=== PATIENT | male | born 1970 | race Caucasian/White ===

== ENCOUNTER 2016-06-24 15:43 | Emergency (ER) | payer OTHER ==
[2016-06-24] MEDS ORDERED: HYDROMORPHONE HCL INJ/PF 2 MG/ML AMPULE IV ONE ×2 (17:29→19:02)
[2016-06-24] MEDS ORDERED: ONDANSETRON 4 MG TAB.RAPDIS PO ONE (17:29)
--- NOTE | 2016-06-24 17:29 | ER Document Report ---
HPI - HPI Patient complains to provider of: low back pain Onset: This morning Pain Level: 5 Context: 46-year-old male with a history of chronic back pain for 20 years with episodic episodes of severe pain, reached forward to get to a paper while on the toilet this morning at 9:30 and developed sharp back pain which caused her to lock up. It took him almost 2 hours due to the severe pain to get to the recliner and then to call 911 to bring him in any type of movement causes pain. No radiculopathy. No saddle anesthesia. [facility] and takes muscle relaxers and just started steroid Dosepak yesterday. He had an x-ray by chiropractor last week he has had 3 MRIs in the past and none of that was surgical. Associated Symptoms: None Exacerbated by: Movement Relieved by: Denies - ROS ROS below otherwise negative: Yes Systems Reviewed and Negative: Yes All other systems reviewed and negative - DERM Skin Color: Normal, [place] Past Medical History - General Information source: Patient - Social History Smoking Status: Never Smoker Chew tobacco use (# tins/day): No Frequency of alcohol use: None Drug Abuse: None Lives with: Spouse/Significant other Family History: Reviewed & Not Pertinent Patient has suicidal ideation: No Patient has homicidal ideation: No - Medical History Medical History: Negative Renal/ Medical History: Denies: Hx Peritoneal Dialysis Surgical Hx: Negative - Immunizations Hx Diphtheria, Pertussis, Tetanus Vaccination: Yes Vertical Provider Document - CONSTITUTIONAL Agree With Documented VS: Yes Exam Limitations: No Limitations - INFECTION CONTROL TRAVEL OUTSIDE OF THE [place] IN LAST 30 DAYS: No - HEENT HEENT: Normocephalic - NECK Neck: Supple - RESPIRATORY Respiratory: Breath Sounds Normal, No Respiratory Distress - CARDIOVASCULAR Cardiovascular: Regular Rate, Regular Rhythm - GI/ABDOMEN Gastrointestinal: Abdomen Soft, Abdomen Non-Tender - BACK Back: Normal Inspection Notes: Nontender - MUSCULOSKELETAL/EXTREMETIES Musculoskeletal/Extremeties: MAEW - After medication, FROM, Non-Tender - NEURO Level of Consciousness: Awake, Alert Motor/Sensory: No Motor Deficit, No Sensory Deficit Deep Tendon Reflexes: 2+ - Bilateral ankle and patellar - DERM Integumentary: Warm, Dry, No Rash Course - Re-evaluation Re-evalutation: 06/24/16 18:08 Pain down to 2/5 and is able to sit up and move and is ready to go home Discharge - Discharge Clinical Impression: chronic back pain Low back strain Qualifiers: Encounter type: initial encounter Qualified Code(s): S39.012A - Strain of muscle, fascia and tendon of lower back, initial encounter Condition: Good Disposition: HOME, SELF-CARE Instructions: Oral Narcotic Medication ([facility]), Warm Packs ([facility]), Low Back Pain ( [facility]), Muscle Strain ([facility]), Pain Medication Injection ([facility]) Additional Instructions: to er if worse see your chiropractor take only 1 kind of muscle relaxer either baclofen or xanaflex do not take anti inflammatory medication meloxicam or celebrex when taking the steroid taper. Please complete the patient satisfaction survey if you get one, and return it.. If you do not receive a survey, then you can go to the [facility] website, [email or web address] and place your comments about your very good care. Thank you very much. It was a pleasure being your medical provider today. Prescriptions: Oxycodone HCl/Acetaminophen [Percocet 10-325 Mg Tablet] 1 each PO Q4HP PRN #20 tablet PRN Reason: Forms: Return to Work
[2016-06-24 19:37] VITALS: BP 135/89
== END 2016-06-24 19:39 | disposition home or self-care (01) ==
LOC: ER 15:43
DX: S39.012A Strain of muscle, fascia and tendon of lower back, initial encounter (principal); M54.5 Low back pain; G89.29 Other chronic pain; X50.9XXA Other and unspecified overexertion or strenuous movements or postures, initial encounter
CPT/HCPCS: 96376; 99283; 96374; S0119; J1170

== ENCOUNTER 2019-03-19 08:50 | Day surgery (SDC) | payer OTHER ==
[~2019-03-19 08:50] MED LIST: PROPOFOL INJ 200 MG/20 ML VIAL IV ONE
[2019-03-19 11:46] VITALS: BP 136/89
--- NOTE | 2019-03-19 13:54 | Operative Report ---
Operative Report DATE OF SURGERY: 03/19/19 Operative Report: The risk, benefits and alternatives of the procedure including the risk of bleeding, perforation requiring surgery have been explained to the patient in detail and informed consent has been obtained. Patient is placed in a left, lateral decubital position. Timeout was called. Propofol medication is administered. Rectal examination is done which did not reveal any masses, tears or fissures. An Olympus videoscope was introduced into the patient's rectum. Scope was then carefully advanced all the way to the cecum. Cecum was identified by the usual anatomical landmarks including the ileocecal valve as well as the appendiceal office. Photodocumentation is obtained. Scope was then sequentially pulled back via the various segments of the colon including the ascending colon, back flexure, transverse colon, splenic flexure, descending colon and finally into the rectosigmoid portions of the colon. Retroflexion maneuvers performed. PREOPERATIVE DIAGNOSIS: Colorectal cancer screening POSTOPERATIVE DIAGNOSIS: 2 colon polyps in the rectosigmoid area status post biopsy. Internal hemorrhoids OPERATION: Colonoscopy with biopsy SURGEON: AFYE LUCIO ANESTHESIA: LMAC TISSUE REMOVED OR ALTERED: As noted above. COMPLICATIONS: None. ESTIMATED BLOOD LOSS: None. INTRAOPERATIVE FINDINGS: As noted above. PROCEDURE: Patient tolerated the procedure well. No immediate postprocedure complications are noted. Patient is discharged in good condition. Discharge date 03/19/2019. Discharge diet: Regular. Discharge activity: Regular. 2 to 3-week follow-up to discuss findings. Patient is instructed to call the office or proceed to the emergency room should there be any further problems or questions. 5-year surveillance colonoscopy.
== END 2019-03-19 11:45 | disposition home or self-care (01) ==
LOC: END 08:50
PROVIDERS: ATTEND Internal Medicine Gastroenterology
DX: Z12.11 Encounter for screening for malignant neoplasm of colon (principal); K63.5 Polyp of colon; K64.8 Other hemorrhoids; Z79.899 Other long term (current) drug therapy
CPT/HCPCS: 45380; 88305 ×2; J2704

== ENCOUNTER 2019-12-17 20:16 | Emergency (ER) | payer OTHER ==
--- NOTE | 2019-12-17 20:22 | ER Document Report ---
ED Medical Screen (RME) - General Chief Complaint: Abdominal Pain Stated Complaint: ABDOMINAL PAIN Time Seen by Provider: 12/17/19 20:18 Mode of Arrival: Medic Information source: Patient Notes: 49-year-old male presented to ED for complaint of mid abdominal pain. He went to [facility] today and was diagnosed with gastroenteritis. He states his pain is so bad that he feels like he is going to pass out. He states he has not had any nausea or vomiting. Patient is alert oriented grabbing his abdomen. Hyperactive bowel sounds at this time. Patient states he has had 1 hard stool today. I have greeted and performed a rapid initial assessment of this patient. A comprehensive ED assessment and evaluation of the patient, analysis of test results and completion of medical decision making process will be conducted by an additional ED providers. TRAVEL OUTSIDE OF THE [place] IN LAST 30 DAYS: No - Related Data Allergies/Adverse Reactions: No Known Allergies Allergy (Verified 03/19/19 09:41) Past Medical History - General Information source: Patient - Social History Cigarette use (# per day): No Frequency of alcohol use: None Drug Abuse: None Lives with: Family Family history: Reviewed & Not Pertinent - Past Medical History Cardiac Medical History: Denies: Hx Coronary Artery Disease, Hx Heart Attack, Hx Hypertension Pulmonary Medical History: Denies: Hx Asthma, Hx Bronchitis, Hx COPD, Hx Pneumonia Neurological Medical History: Denies: Hx Cerebrovascular Accident, Hx Seizures Renal/ Medical History: Denies: Hx Peritoneal Dialysis Musculoskeltal Medical History: Denies Hx Arthritis Psychiatric Medical History: Reports: Hx Anxiety, Hx Depression, Hx Post Traumatic Stress Disorder, Other - Insomnia Traumatic Medical History: Reports: None Infectious Medical History: Reports: None Past Surgical History: Reports: Hx Inguinal Hernia - Right - Immunizations Hx Diphtheria, Pertussis, Tetanus Vaccination: Yes
[2019-12-17 20:45] LABS: ABSOLUTE LYMPHOCYTES (AUTO) 0.8 10^3/uL (0.5-4.7); ABSOLUTE MONOCYTES (AUTO) 0.7 10^3/uL (0.1-1.4); ABSOLUTE NEUT (AUTO) 9.3 10^3/uL (1.7-8.2); BASOPHILS % (AUTO) 0.4 % (0-2); HEMATOCRIT 50.7 % (37.9-51.0); HEMOGLOBIN 17.6 g/dL (13.5-17.0); LYMPHOCYTES % (AUTO) 7.8 % (13-45); MEAN CORPUSCULAR HEMOGLOBIN 32.8 pg (27.0-33.4); MEAN CORPUSCULAR HGB CONC 34.7 g/dL (32.0-36.0); MEAN CORPUSCULAR VOLUME 95 fl (80-97); MONOCYTES % (AUTO) 6.3 % (3-13); PLATELET COUNT 166 10^3/uL (150-450); RED BLOOD COUNT 5.36 10^6/uL (4.35-5.55); RED CELL DISTRIBUTION WIDTH 13.8 % (11.5-14.0); SEGMENTED NEUTROPHILS % (AUTO) 85.5 % (42-78); TOTAL CELLS COUNTED % (AUTO) 100 %; WHITE BLOOD COUNT 10.9 10^3/uL (4.0-10.5)
[2019-12-17 20:50] VITALS: BP 147/89
[2019-12-17] MEDS ORDERED: NORMAL SALINE 1000 ML 1,000 ML IV ONE (20:56)
[2019-12-17 21:03] LABS: ALBUMIN 4.8 g/dL (3.5-5.0); ALKALINE PHOSPHATASE 57 U/L (38-126); ANION GAP 14 (5-19); ASPARTATE AMINO TRANSFERASE 31 U/L (17-59); BILIRUBIN,DIRECT 0.1 mg/dL (0.0-0.4); BILIRUBIN,TOTAL 0.6 mg/dL (0.2-1.3); BLOOD UREA NITROGEN 17 mg/dL (7-20); CALCIUM 10.5 mg/dL (8.4-10.2); CARBON DIOXIDE 25 mmol/L (22-30); CHLORIDE 98 mmol/L (98-107); GLUCOSE 115 mg/dL (75-110); TOTAL PROTEIN 7.5 g/dL (6.3-8.2)
--- NOTE | 2019-12-17 21:04 | RADIOLOGY REPORT (SQ) ---
CLINICAL INDICATION: Abdominal pain generalized hypoactive bowel sounds. TECHNIQUE: 3 image(s) of the abdomen. 1 image(s) of the chest. COMPARISON: None. CORRELATION: None. FINDINGS: A nonspecific gas pattern is identified. No evidence of high grade obstruction. No evidence of free air. Moderate hard stool within the colon.. The cardiomediastinal silhouette is top normal. The lungs are grossly clear. No evidence of effusion or pneumothorax. No chronic parenchymal lung change. 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 No evidence of active intrathoracic disease.
== END 2019-12-17 21:26 | disposition left against medical advice (07) ==
LOC: ER 20:16
DX: K52.9 Noninfective gastroenteritis and colitis, unspecified (principal); Z53.29 Procedure and treatment not carried out because of patient's decision for other reasons
CPT/HCPCS: 99281; 36415; 83690; 85025; 80053; 74022; J7030